=== PATIENT | female | born 1955 | race Asian ===

== ENCOUNTER → 2018-04-03 | Outpatient (CLI) | payer OTHER ==
[2018-04-03 12:38] LABS: MICROSCOPIC AUTO
[2018-04-03 12:54] LABS: MD NO; MONOCYTES # (AUTO) 0.42 x10^3/uL (0.2-0.8); MONOCYTES % (AUTO) 6 % (2-9)
[2018-04-03 13:03] LABS: ALBUMIN 3.9 g/dL (3.4-5.0); ANION GAP 8 mmol/L (5-15); CALCIUM 8.7 mg/dL (8.5-10.1); CHLORIDE 108 mmol/L (98-107)
[2018-04-03 13:08] LABS: ALANINE AMINOTRANSFERASE 91 U/L (12-78); ALKALINE PHOSPHATASE 80 U/L (45-117); BILIRUBIN,TOTAL 0.5 mg/dL (0.2-1.0); CREATININE 0.54 mg/dL (0.55-1.02); TOTAL PROTEIN 7.6 g/dL (6.4-8.2)
[2018-04-03 13:29] LABS: BASOPHILS # (AUTO) 0.03 x10^3/uL (0-0.1); BASOPHILS % (AUTO) 1 % (0-1); EOSINOPHILS # (AUTO) 0.17 x10^3/uL (0-0.4); EOSINOPHILS % (AUTO) 2 % (1-7); LYMPHOCYTES # (AUTO) 1.99 x10^3/uL (1-3.4); LYMPHOCYTES % (AUTO) 28 % (22-44); MEAN CORPUSCULAR HEMOGLOBIN 30.8 pg (27.0-34.8); MEAN CORPUSCULAR HGB CONC 34.3 g/dL (32.4-35.8); MEAN CORPUSCULAR VOLUME 89.9 fL (80-100); MEAN PLATELET VOLUME 8.3 fL (7.4-10.4); NEUTROPHILS # (AUTO) 4.59 x10^3/uL (1.8-6.8); NEUTROPHILS % (AUTO) 64 % (42-75); PLATELET COUNT 306 x10^3/uL (130-400); RED BLOOD COUNT 5.07 x10^6/uL (3.82-5.3); RED CELL DISTRIBUTION WIDTH 12.9 % (9.6-15.2)
== END | disposition home or self-care (01) ==
LOC: STAR 11:08
PROVIDERS: ATTEND Obstetrics & Gynecology Gynecology
DX: Z01.818 Encounter for other preprocedural examination (principal); R32 Unspecified urinary incontinence
CPT/HCPCS: 36415; 71046; 80053; 81001; 85025; 93005

== ENCOUNTER 2018-04-09 05:53 | Day surgery (SDC) | payer OTHER ==
[2018-04-03 12:18] VITALS: BP 130/75
[~2018-04-09] VITALS: Ht 168.9 cm; Wt 89.8 kg
[2018-04-09] MEDS ORDERED: THROMBIN 5,000 UNIT VIAL TP ONE (06:40)
[2018-04-09] MEDS ORDERED: LIDOCAINE/PF 1%-EPI 1:200K, 30 ML ONE (06:40)
[2018-04-09] MEDS ORDERED: FLUORESCEIN SODIUM 500 MG/5 ML ONE (06:40)
[2018-04-09] MEDS ORDERED: LACTATED RINGERS 1,000 ML IV SCH (06:44)
[2018-04-09] MEDS ORDERED: ASPIRIN PO (06:45)
[2018-04-09] MEDS ORDERED: NEOMY/POLYMYXIN B GU IRR. 1 ML IRRIG ONE (06:50)
[2018-04-09] MEDS ORDERED: LIDOCAINE-MPF 1%, 5ML ONE (06:55)
[2018-04-09] MEDS ORDERED: LIDOCAINE-MPF 1%, 2ML INFIL ONE (07:00)
[2018-04-09] MEDS ORDERED: MIDAZOLAM 1 MG/ML, 2ML ONE (07:19)
[2018-04-09] MEDS ORDERED: FENTANYL PF 250 MCG/5ML ONE (07:19)
[2018-04-09] MEDS ORDERED: EPINEPHRINE 1 MG/ML, 1ML ONE (07:41)
[2018-04-09] MEDS ORDERED: METOCLOPRAMIDE 5 MG/ML, 2ML ONE (07:51)
[2018-04-09] MEDS ORDERED: KETOROLAC 30 MG/1 ML ONE (07:51)
[2018-04-09] MEDS ORDERED: CEFAZOLIN 1,000 MG ONE (07:51)
[2018-04-09] MEDS ORDERED: ROCURONIUM 10MG/ML,5ML ONE (08:03)
[2018-04-09] MEDS ORDERED: PROPOFOL 10 MG/ML, 20ML ONE (08:03)
[2018-04-09] MEDS ORDERED: ALBUTEROL HFA 90 MCG/SPRAY ONE (08:03)
[2018-04-09] MEDS ORDERED: DEXAMETHASONE 4 MG/ML, 1ML ONE (08:03)
[2018-04-09] MEDS ORDERED: LIDOCAINE 2% 100MG/5ML SYRINGE ONE (08:03)
[2018-04-09] MEDS ORDERED: ONDANSETRON 2MG/ML, 2ML ONE (08:03)
[2018-04-09] MEDS ORDERED: NEOSTIGMINE 1 MG/ML, 10ML ONE (08:21)
[2018-04-09] MEDS ORDERED: GLYCOPYRROLATE 0.4 MG/2 ML, 2ML ONE (08:21)
[2018-04-09] MEDS ORDERED: HYDROmorphone 1 MG/ML, 1ML IV PRN (09:00)
[2018-04-09] MEDS ORDERED: MEPERIDINE/PF 25MG/0.5ML IVPush PRN (09:00)
[2018-04-09] MEDS ORDERED: hydrALAzine 20 MG/ML, 1ML IV PRN (09:00)
[2018-04-09] MEDS ORDERED: PROMETHAZINE 25 MG/ML, 1ML IV PRN (09:00)
[2018-04-09] MEDS ORDERED: FENTANYL PF 100 MCG/2ML IV PRN (09:00)
[2018-04-09] MEDS ORDERED: ACETAMINOPHEN 325 MG TABLET PO PRN (09:00)
[2018-04-09] MEDS ORDERED: OXYcodone 5 MG/5 ML ORAL.SOL UDC PO PRN (09:00)
[2018-04-09] MEDS ORDERED: LABETALOL 5MG/ML, 20ML IV PRN (09:00)
[2018-04-09] MEDS ORDERED: ALBUTEROL SULFATE 2.5 MG/3 ML NPPB PRN (09:00)
[2018-04-09] MEDS ORDERED: HALOPERIDOL 5 MG/ML IV PRN (09:00)
== END 2018-04-09 15:50 | disposition home or self-care (01) ==
LOC: OUT 05:53
PROVIDERS: ATTEND Obstetrics & Gynecology Gynecology
DX: N39.3 Stress incontinence (female) (male) (principal); G47.33 Obstructive sleep apnea (adult) (pediatric); Z79.82 Long term (current) use of aspirin
CPT/HCPCS: 57288; C1771; J0171; J0690; J1100; J1885; J2250; J2405; J2704; J2710; J2765; J3010; J3490; J7120